=== PATIENT | female | born 1985 | race Caucasian/White ===

== ENCOUNTER → 2016-07-25 | Outpatient (CLI) | payer OTHER ==
--- NOTE | 2016-07-25 16:34 | KCIC ---
Examination: Ultrasound pelvis. HISTORY History of heavy vaginal bleeding, pelvic pain. COMPARISON None available. TECHNIQUE Transabdominal, transvaginal ultrasound examination the pelvis. Findings: The uterus measures 9.1 x 4.5 x 5.0 centimeters. The endometrium measures 9.2 centimeters in transverse dimension. Small amount of fluid identified in the endometrium. There is a 1.8 centimeter follicle identified the right ovary. Blood flow identified in the right and left ovaries. IMPRESSION 1. Small amount of fluid identified in the endometrium, nonspecific. 2. 1.8 centimeter cystic structure in the right ovary likely a follicle. Electronically signed by: Andrew Acevedo (Jul 25, 2016 16:32:13)
== END | disposition home or self-care (01) ==
LOC: KCIC US 15:38
PROVIDERS: ATTEND Obstetrics & Gynecology
DX: N93.9 Abnormal uterine and vaginal bleeding, unspecified (principal); N83.291 Other ovarian cyst, right side; N85.8 Other specified noninflammatory disorders of uterus
CPT/HCPCS: 76830; 76856

== ENCOUNTER → 2017-06-27 | Day surgery (SDC) | payer OTHER ==
[~2017-06-27] MED LIST: HYDROmorphone 2 MG/ML VIAL IV; LIDOCAINE 1% PF 2 ML VIAL. ID; MORPHINE SULFATE 2 MG/ML DISP.SYRIN. IV; ONDANSETRON PF 4 MG/2 ML VIAL. IV; PROCHLORPERAZINE 10 MG/2 ML VIAL. IV; PROPOFOL 20 ML IV; fentaNYL PF VIAL 100 MCG/2 ML VIAL IV
[2017-06-27 07:22] LABS: NEG OBC UR NEG; POS OBC UR POS
[2017-06-27] MEDS: IV RINGERS,LACTATED 1000ML 1,000 ML IV (07:26)
== END | disposition home or self-care (01) ==
LOC: ENDOS 07:02
DX: K64.1 Second degree hemorrhoids (principal); K57.30 Diverticulosis of large intestine without perforation or abscess without bleeding; E03.9 Hypothyroidism, unspecified; F41.9 Anxiety disorder, unspecified; F32.9 Major depressive disorder, single episode, unspecified; Z87.39 Personal history of other diseases of the musculoskeletal system and connective tissue; Z98.51 Tubal ligation status; Z98.890 Other specified postprocedural states; Z86.39 Personal history of other endocrine, nutritional and metabolic disease; Z88.5 Allergy status to narcotic agent
CPT/HCPCS: 45378; 81025; J2405; J2704

== ENCOUNTER → 2017-10-09 | Outpatient (CLI) | payer OTHER | END | disposition home or self-care (01) | LOC: ECHO 12:57 | DX: Z82.79 Family history of other congenital malformations, deformations and chromosomal abnormalities (principal) | CPT/HCPCS: 93306 ==

== ENCOUNTER → 2018-01-13 | Outpatient (CLI) | payer OTHER | END | disposition home or self-care (01) | LOC: KCIC MRI 13:08 | DX: M50.221 Other cervical disc displacement at C4-C5 level (principal); M48.02 Spinal stenosis, cervical region; M12.88 Other specific arthropathies, not elsewhere classified, other specified site | CPT/HCPCS: 72141 ==

== ENCOUNTER → 2018-01-23 | Outpatient (CLI) | payer OTHER | END | disposition home or self-care (01) | LOC: KCIC MRI 12:02 | DX: M51.36 Other intervertebral disc degeneration, lumbar region (principal); E03.9 Hypothyroidism, unspecified | CPT/HCPCS: 72146; 72148 ==

== ENCOUNTER 2018-10-02 12:18 | Emergency (ER) | payer SELFPAY ==
[~2018-10-02] VITALS: Ht 170.2 cm; Wt 97.1 kg
[~2018-10-02 12:18] MED LIST changes: -HYDROmorphone 2 MG/ML VIAL IV; +LEVO100T PO; -LIDOCAINE 1% PF 2 ML VIAL. ID; -MORPHINE SULFATE 2 MG/ML DISP.SYRIN. IV; +NORE1CAP PO; -ONDANSETRON PF 4 MG/2 ML VIAL. IV; -PROCHLORPERAZINE 10 MG/2 ML VIAL. IV; -PROPOFOL 20 ML IV; -fentaNYL PF VIAL 100 MCG/2 ML VIAL IV
[2018-10-02] MEDS ORDERED: LIDO:MAALOX 1:1 20 ML SINGLE DOSE. SWSW ONE (13:15)
[2018-10-02] MEDS ORDERED: ACETAMINOPHEN 500 MG TABLET PO ONE (13:15)
[2018-10-02] MEDS ORDERED: IOHEXOL 300 MG/ML 100ML VIAL. IV ONE (13:30)
[2018-10-02 13:35] LABS: BASO % 1 % (0-3); EOS # 0.1 x10^3/uL (0.0-0.7); EOS % 2 % (0-3); HEMATOCRIT 40.1 % (36.0-47.0); LYMPH # 2.2 x10^3/uL (1.0-4.8); LYMPH % 29 % (24-48); MEAN CORPUSCULAR HEMOGLOBIN 25 pg (25-35); MEAN CORPUSCULAR HGB CONC 32 g/dL (31-37); MEAN CORPUSCULAR VOLUME 77 fL (79-100); MONO # 0.4 x10^3/uL (0.0-1.1); MONO % 6 % (0-9); NEUT # 4.8 x10^3uL (1.8-7.7); NEUT % 63 % (31-73); PLATELET COUNT 227 x10^3/uL (140-400); RED BLOOD COUNT 5.18 x10^6/uL (3.50-5.40); RED CELL DISTRIBUTION WIDTH 14.4 % (11.5-14.5); WHITE BLOOD COUNT 7.6 x10^3/uL (4.0-11.0)
[2018-10-02 13:36] LABS: BILIRUBIN,URINE NEGATIVE (NEG); CLARITY,URINE CLEAR; COLOR,URINE YELLOW; NITRITE,URINE NEGATIVE (NEG); PH,URINE 5.5; PROTEIN,URINE NEGATIVE (NEG-TRACE); UROBILINOGEN,URINE 0.2 mg/dL (0.2 mg/dL)
[2018-10-02] MEDS ORDERED: CONTRAST GIVEN. MC PRN (13:45)
[2018-10-02 13:46] LABS: CALCIUM 9.2 mg/dL (8.5-10.1); CREATININE 0.7 mg/dL (0.6-1.0); GFR 97.6
[2018-10-02 13:47] LABS: BACTERIA,URINE FEW /HPF (0-FEW); RBC,URINE 0 /HPF (0-2); SQUAMOUS EPITHELIAL CELL,UR OCC /LPF
[2018-10-02 13:52] LABS: ALBUMIN 3.6 g/dL (3.4-5.0); ALBUMIN/GLOBULIN RATIO 0.9 (1.0-1.7); TOTAL BILIRUBIN 0.5 mg/dL (0.2-1.0); TOTAL PROTEIN 7.7 g/dL (6.4-8.2)
--- NOTE | 2018-10-02 13:52 | PHYS DOC ---
Past Medical History Past Medical History: Diverticulosis, Hypothyroid Past Surgical History: , Tonsillectomy Alcohol Use: Rarely Drug Use: None Adult General Chief Complaint Chief Complaint: ABDOMINAL PAIN HPI HPI Patient is a 32 year old female with a history of 5 prior abdominal surgeries ( 4 c sections, tubal ligation, and exploratory lap) who presents with LUQ abdominal pain. Pt reports this pain has been "on and off" for the past 2 months , noting that the pain subsides on its own within 1-2 hours after its onset. That pain is a dull/ache pain that does not radiate. She came to the ER today because she did not get relief with waiting and it started to feel worse. The LUQ pain started around 1800 last night (10/01/18) while she was eating and she did not seek treatment because it usually subsides. This morning it got worse and the pain changed to a "sharp/stabbing" pain that she rates a 5 or 6 out of 10. She took 400 mg ibueprofen this morning and it did not give her any relief. During onset of pain she noted a metallic taste in her mouth and she says it has not gone away. She reports her last BM was last night when she experienced diarrhea. Flatus has occurred today as well. She denies vomiting, constipation, blood in stool or urine, chest pain, LICONA, SOB, or fever/chills. She has not had any sick contacts. LMP was "a while ago," and that she "doesn't really keep track now that my tubes are tied," noting a history of heavy, irregular menses. Pt also reports a diagnosis of Diverticulosis via colonoscopy in 2017. She had a colonoscopy because of rectal bleeding that occurred w/ and w/out defecation. She has not started or stopped any new prescriptions or OTC's. Review of Systems Review of Systems Constitutional: Denies fever or chills Eyes: Denies change in visual acuity, redness, or eye pain HENT: Denies nasal congestion or sore throat Respiratory: Denies cough or shortness of breath Cardiovascular: No additional information not addressed in HPI GI: Admits abdominal pain and nausea. Admits to having diarrhea last night Denies vomiting or bloody stools : Denies dysuria or hematuria Musculoskeletal: Denies back pain or joint pain Integument: Denies rash Neurologic: Denies headache Current Medications Current Medications Current Medications Medications (Trade) Dose Ordered Sig/Elvin Start Time Stop Time Status Last Admin Dose Admin Acetaminophen (Tylenol) 1,000 mg 1X ONCE 10/02/18 13:15 10/02/18 13:16 DC 10/02/18 13:36 1,000 MG Info (CONTRAST GIVEN -- Rx MONITORING) 1 each PRN DAILY PRN 10/02/18 13:45 10/02/18 15:25 DC Iohexol (Omnipaque 300 Mg/ml) 75 ml 1X ONCE 10/02/18 13:30 10/02/18 13:31 DC 10/02/18 14:00 75 ML Multi-Ingredient Mouthwash/Gargle (Gi Cocktail) 20 ml 1X ONCE 10/02/18 13:15 10/02/18 13:16 DC Allergies Allergies Allergies Coded Allergies Type Severity Reaction Last Updated Verified hydrocodone Allergy Intermediate 06/27/17 Yes Physical Exam Physical Exam Constitutional: Well developed, well nourished, no acute distress, non-toxic appearance. HENT: Normocephalic, atraumatic, bilateral external ears normal, oropharynx moist, no oral exudates, nose normal. Eyes: PERRLA, EOMI, conjunctiva normal, no discharge. Neck: Normal range of motion, no tenderness, supple, no stridor. Cardiovascular:Heart rate regular rhythm, no murmur Lungs & Thorax: Bilateral breath sounds clear to auscultation Abdomen:Hypoactive BS x 4, soft, no masses, no pulsatile masses. Pt reports relief of pain with deep palpation in LUQ and only experiences slight pain with removal of palpation. Skin: Warm, dry, no erythema, no rash. Back: No tenderness, no CVA tenderness. Extremities: No tenderness, no cyanosis, no clubbing, ROM intact, no edema. Neurologic: Alert and oriented X 3, normal motor function, normal sensory function, no focal deficits noted. Psychologic: Affect normal, judgement normal, mood normal. Current Patient Data Vital Signs Vital Signs Date Time Temp Pulse Resp B/P (MAP) Pulse Ox O2 Delivery O2 Flow Rate FiO2 10/02/18 15:15 54 18 105/57 (73) 99 Room Air 10/02/18 12:40 98.7 98.7 Lab Values Laboratory Tests Test 10/02/18 12:25 10/02/18 12:34 3/15/19 13:20 Urine Color Yellow Urine Clarity Clear Urine pH 5.5 Urine Specific [place] 1.020 Urine Protein Negative mg/dL (NEG-TRACE) Urine Glucose (UA) Negative mg/dL (NEG) Urine Ketones (Stick) Negative mg/dL (NEG) Urine Blood Negative (NEG) Urine Nitrite Negative (NEG) Urine Bilirubin Negative (NEG) Urine Urobilinogen Dipstick 0.2 mg/dL (0.2 mg/dL) Urine Leukocyte Esterase Negative (NEG) Urine RBC 0 /HPF (0-2) Urine WBC 1-4 /HPF (0-4) Urine Squamous Epithelial Cells Occ /LPF Urine Bacteria Few /HPF (0-FEW) Urine Mucus Mod /LPF POC Urine HCG, Qualitative Hcg negative (Negative) White Blood Count 7.6 x10^3/uL (4.0-11.0) Red Blood Count 5.18 x10^6/uL (3.50-5.40) Hemoglobin 13.0 g/dL (12.0-15.5) Hematocrit 40.1 % (36.0-47.0) Mean Corpuscular Volume 77 fL (79-100) L Mean Corpuscular Hemoglobin 25 pg (25-35) Mean Corpuscular Hemoglobin Concent 32 g/dL (31-37) Red Cell Distribution Width 14.4 % (11.5-14.5) Platelet Count 227 x10^3/uL (140-400) Neutrophils (%) (Auto) 63 % (31-73) Lymphocytes (%) (Auto) 29 % (24-48) Monocytes (%) (Auto) 6 % (0-9) Eosinophils (%) (Auto) 2 % (0-3) Basophils (%) (Auto) 1 % (0-3) Neutrophils # (Auto) 4.8 x10^3uL (1.8-7.7) Lymphocytes # (Auto) 2.2 x10^3/uL (1.0-4.8) Monocytes # (Auto) 0.4 x10^3/uL (0.0-1.1) Eosinophils # (Auto) 0.1 x10^3/uL (0.0-0.7) Basophils # (Auto) 0.0 x10^3/uL (0.0-0.2) Sodium Level 141 mmol/L (136-145) Potassium Level 4.0 mmol/L (3.5-5.1) Chloride Level 102 mmol/L (98-107) Carbon Dioxide Level 26 mmol/L (21-32) Anion Gap 13 (6-14) Blood Urea Nitrogen 14 mg/dL (7-20) Creatinine 0.7 mg/dL (0.6-1.0) Estimated GFR (Cockcroft-Gault) 97.6 BUN/Creatinine Ratio 20 (6-20) Glucose Level 87 mg/dL (70-99) Calcium Level 9.2 mg/dL (8.5-10.1) Total Bilirubin 0.5 mg/dL (0.2-1.0) Aspartate Amino Transferase (AST) 29 U/L (15-37) Alanine Aminotransferase (ALT) 67 U/L (14-59) H Alkaline Phosphatase 115 U/L (46-116) Total Protein 7.7 g/dL (6.4-8.2) Albumin 3.6 g/dL (3.4-5.0) Albumin/Globulin Ratio 0.9 (1.0-1.7) L Lipase 94 U/L (73-393) Laboratory Tests 10/02/18 13:20 Laboratory Tests 10/02/18 13:20 EKG EKG [] Radiology/Procedures Radiology/Procedures [] Impressions: COMPARISON: None. FINDINGS: Evaluation of the lower thorax is unremarkable. There is fatty infiltration of the liver adjacent to the falciform ligament. No suspicious hepatic lesion is seen. The gallbladder, pancreas, adrenal glands and stomach are unremarkable. The spleen is upper normal in size. There is a 7 mm cyst within the posterior mid zone of the left kidney. There is no suspicious renal lesion. There is a slightly prominent right renal pelvis likely due to the hydration status the patient or an extrarenal pelvis. There is no hydronephrosis. There is no appendicitis. There is no bowel obstruction. There is no evidence of abnormal bowel wall thickening. There are few prominent nonspecific pericecal and mesenteric root lymph nodes, within physiologic limits. The uterus and the adnexal regions are unremarkable. The bladder is unremarkable. There is no suspicious osseous lesion. There is slight sacralization of the left aspect of L5 resulting in articulation with the underlying sacrum, a normal variant. IMPRESSION: 1. No acute abdominal or pelvic finding. 2. Small left renal cyst. Electronically signed by: Tigist Roque MD (10/02/2018 2:25 PM) [id number] Course & Med Decision Making Course & Med Decision Making Kelle Grimaldo is a 32 yo F w/ a PMH of hypothyroidism, 4 's w/ a tubal ligation performed on last , exploratory laparotomy, and diverticulosis diagnosed on colonoscopy (2016), presents w/ LUQ pain since last night at 1800 (10/01/18). She has been experiencing this pain on and off the past 2 months but came to the ER today because it did not get better (it usually subsides w/in an hour) and the pain both increased in intensity (from a 5 to a 6/10) and changed in character to sharp/stabbing (from dull/ache). BS were hypoactive x4, pt was not TTP in all 4 quadrants, and pt reported relief of pain w/ deep palpation in the LUQ. Last BM was diarrhea per pt and occurred last night around 2100. Flatulence has occurred today as well. Drinking water makes it worse, but pt notes that it doesn't get better or worse with food. She admits to nausea and diarrhea. She denies CP, SOB, fever/chills, vomit, dysuria , blood in stool/urine, and sick contacts. Ddx ct scan done due to colo result with diverituclitis and her left sided abdo pian er workup negative recommended antacid f/u as eneded if not improving. Dragon Disclaimer Dragon Disclaimer This electronic medical record was generated, in whole or in part, using a voice recognition dictation system. Departure Departure Impression: Primary Impression: Abdominal pain Disposition: HOME, SELF-CARE Condition: STABLE Referrals: SHAWN REED MD (PCP) Scripts Omeprazole (OMEPRAZOLE) 20 Mg Capsule.dr 1 CAP PO DAILY, #30 CAP 1 Refill Prov: KIKE RAZO MD 10/02/18 KIKE RAZO MD Oct 02, 2018 13:51
--- NOTE | 2018-10-02 14:28 | RAD ---
EXAM: Abdomen and pelvis CT with intravenous contrast. HISTORY: Left-sided pain. TECHNIQUE: Computed tomographic images of the abdomen and pelvis were obtained following the administration of 75 cc Omnipaque 300 intravenous contrast. Multiplanar reformatting was performed. *One or more of the following individualized dose reduction techniques were utilized for this examination: 1. Automated exposure control. 2. Adjustment of the mA and/or kV according to patient size. 3. Use of iterative reconstruction technique. COMPARISON: None. FINDINGS: Evaluation of the lower thorax is unremarkable. There is fatty infiltration of the liver adjacent to the falciform ligament. No suspicious hepatic lesion is seen. The gallbladder, pancreas, adrenal glands and stomach are unremarkable. The spleen is upper normal in size. There is a 7 mm cyst within the posterior mid zone of the left kidney. There is no suspicious renal lesion. There is a slightly prominent right renal pelvis likely due to the hydration status the patient or an extrarenal pelvis. There is no hydronephrosis. There is no appendicitis. There is no bowel obstruction. There is no evidence of abnormal bowel wall thickening. There are few prominent nonspecific pericecal and mesenteric root lymph nodes, within physiologic limits. The uterus and the adnexal regions are unremarkable. The bladder is unremarkable. There is no suspicious osseous lesion. There is slight sacralization of the left aspect of L5 resulting in articulation with the underlying sacrum, a normal variant. IMPRESSION: 1. No acute abdominal or pelvic finding. 2. Small left renal cyst. Electronically signed by: Tigist Roque MD (10/02/2018 2:25 PM) [id number]
[2018-10-02] MEDS ORDERED: OMEP20CA10 PO (14:45)
[2018-10-02 15:15] VITALS: BP 105/57
== END 2018-10-02 15:18 | disposition home or self-care (01) ==
LOC: ER 12:18
DX: R10.12 Left upper quadrant pain (principal); R19.7 Diarrhea, unspecified; R11.0 Nausea; E03.9 Hypothyroidism, unspecified; Z98.890 Other specified postprocedural states; Z90.89 Acquired absence of other organs; Z98.51 Tubal ligation status; Z88.5 Allergy status to narcotic agent
CPT/HCPCS: 36415; 74177; 80053; 81001; 81025; 83690; 85025; 99284; Q9967